=== PATIENT | male | born 1990 | race Caucasian/White ===

== ENCOUNTER 2022-04-21 05:27 | Emergency (ER) | payer MEDICAID ==
[~2022-04-21] VITALS: Ht 157.5 cm; Wt 88.5 kg
[2022-04-21 05:32] VITALS: BP 220/150
--- NOTE | 2022-04-21 05:33 | NUR ---
TRACY COLEMANP TAKEN TO CHAIR A
[2022-04-21] MEDS ORDERED: CLONIDINE HYDROCHLORIDE 0.1 MG TAB PO ONE ×2 (05:35)
[2022-04-21] MEDS ORDERED: CLONIDINE HYDROCHLORIDE 0.1 MG TAB ONE (05:36)
--- NOTE | 2022-04-21 06:04 | NUR ---
BP 185/121 HR 90. ALEAH LOFTON STATED PT IS OK FOR D/C.
[2022-04-21 06:05] VITALS: BP 185/121
--- NOTE | 2022-04-21 06:05 | NUR ---
PATIENT BIB [facility] POLICE DEPT. PATIENT EXAMINED BY DR. LOFTON. PATIENT MEDICALLY CLEARED AND RELEASED IN CUSTODY IN STABLE CONDITION. ORIGINAL PRE-BOOK FORM GIVEN TO OFFICER [place] #[id number].
== END 2022-04-21 06:05 ==
LOC: MED 05:27
DX: I10 Essential (primary) hypertension (principal); Z02.89 Encounter for other administrative examinations; E11.9 Type 2 diabetes mellitus without complications
CPT/HCPCS: 99283